=== PATIENT | male | born 1985 | race Caucasian/White ===

== ENCOUNTER 2024-11-02 20:43 | Emergency (ER) | payer OTHER, SELFPAY ==
[2024-11-02] VITALS (7 sets, daily range): BP systolic 122–137; BP diastolic 85–94; PULSE 66–106; RESP 10–24; TEMP 36.4; O2SAT 95–100; BMI 28.7
--- NOTE | 2024-11-02 20:50 | RAD_ITS ---
PROCEDURE: SHOULDER MIN 2 VIEWS REASON FOR EXAM: Injury. Pain TECHNIQUE: 4 view(s) of the left shoulder COMPARISON: None. FINDINGS: Anterior inferior dislocation of the glenohumeral joint with a suspected Hill- Sachs defect. Soft tissues are unremarkable. RAD/Shoulder min 2 Views IMPRESSION: Anterior inferior dislocation of the glenohumeral joint with a suspected Hill-S achs defect. Reading Location: [facility]
--- NOTE | 2024-11-02 21:10 | EDS_ITS ---
HPI History of Present Illness Chief Complaint: Upper Extremity Injury [facility] Medical History (Updated 11/02/24 @ 21:22 by Leola Cutler) Shoulder dislocation Home Medications ?Medication ?Instructions ?Recorded ?Last Taken ?Type vibegron 75 mg tablet (Gemtesa) 75 mg PO DAILY 5 Unknown History Allergy/AdvReac Type Severity Reaction Status Date / Time Penicillins (PCN) Allergy Mild Rash Verified 11/02/24 20:44 Social History Smoking Status: Never smoker EXAM Physical Exam Const Vital Signs: 11/02/24 20:44 Temperature 97.5 F L Temperature Source Temporal Pulse Rate 106 H Respiratory Rate 15 Blood Pressure 137/90 H Blood Pressure Mean 105 Pulse Ox 97 Oxygen Delivery Method Room Air [facility] MDM MDM Narrative Medical decision making narrative: HISTORY OF PRESENT ILLNESS: 38-year-old male presents with left shoulder pain concern for dislocation after playing hockey. Patient denies head trauma. He is right-hand dominant. REVIEW OF SYSTEMS: Pertinent positives: Left shoulder pain Pertinent negatives: Numbness tingling PHYSICAL EXAM: Nursing triage notes reviewed, Vital signs reviewed Constitutional: please see mdm Extremities: N obvious step-off deformity to left shoulder. Left lower extremity warm well-perfused Neuro: intact 5/5 strength with ok sign (median), intact finger abduction (ulnar) intact wrist extension (radial n). Intact sensation in the radial, ulnar, and median nerve distributions. Intact axillary nerve function Skin: No rash or lesions noted, no sign of open fracture MEDICAL DECISION MAKING: Chief Complaint: Shoulder pain External records reviewed: Reviewed prior imaging Factors affecting care: none Social determinants of health: none History obtained from others: none Consults: none [facility] Narrative: Patient was initially hemodynamically stable, afebrile and nontoxic-appearing. Exam with obvious step-off deformity left shoulder. I considered the following differential diagnosis: Shoulder fracture, dislocation ALL IMAGES (IF OBTAINED) HAVE BEEN PERSONALLY REVIEWED AND INTERPRETED BY MYSELF. X-ray of the patient's left shoulder was read and reviewed personally. It shows evidence of obvious left shoulder dislocation. Postreduction x-ray was read and reviewed personally and showed interval reduction no obvious fracture or dislocation. Patient appropriate discharge home. Procedural sedation was performed for with propofol. Please see below procedure note. The procedure was performed by myself. Intra-Service Time: 15 minutes Indication: Completion of a potentially painful procedure. Pre-sedation Evaluation: Evaluated at approximately 9:45 PM on 11/02/2024, ASA class I, Mallampati score of 1 Patient is an appropriate candidate for procedural sedation. The risks of sedation were discussed with the patient and/or legal guardian. A time out was completed. The patient was reevaluated immediately prior to initiation of sedation. IV access established. The patient was sedated with use 100 mg IV propofol. The patient was monitored with continuous pulse oximetry, urology nurse, and capnography. The patient protected their airway well, with vital signs remaining stable throughout the duration of the procedure. There were no complications and no significant hypoxemia. I remained at the bedside for the sedation. I provided 15 minutes minutes of intra-service time. Post sedation evaluation: Patient was alert and cooperative, hemodynamically st able with appropriate respiratory status, temperature and pain control without ongoing nausea and vomiting. The patient and/or family, caregivers express understanding. The patient and/or family, caregivers agrees with the plan. Shared decision making: I will have a discussion with the patient and or visitors regarding risk/benefits of further testing or admission. They will be made aware of of the risk/benefits inherent in this decision they will be given the opportunity to voice understanding. Total critical care time today provided was at least 0 minutes. This excludes separately billable procedures. Critical care time (if documented) is secondary to the patient having high probability of clinically significant/life threatening deterioration in the patient's condition which required my urgent intervention. Impression: 1. Acute left shoulder dislocation 2. History of rotator cuff surgery 3. Hill-Sachs deformity Dispo: Discharge home This note was generated with [employer] dictation software. It may contain incorrect words, spelling, and punctuation that were not noted in review of the chart prior to signing. Discharge Plan Triage Chief Complaint: Upper Extremity Injury ED Provider: Eyad Villagomez Dx/Rx/DC Orders Instructions: ED Dislocation: Shoulder (Reduced) Prescriptions: No Action Gemtesa 75 mg tablet 75 mg PO DAILY Stand Alone Forms: ED Work / School Excuse Primary Care Provider: Alex Guerrero Referrals: Kai Meyer DO [Med Staff - Active Staff] - Activity Restrictions/Additional Instructions: Thank you for trusting us with your care today! Please take Tylenol (2 pills, 650 mg), ibuprofen (2 pills, 400 mg) every 6 hours as needed for pain and fever control. Please return to the emergency department if your symptoms change or worsen. Please slowly return to full activity. Please wear your sling for the first 24 hours. After which time please daily remove your arm from the sling and perform light slow nonweight range of motion exercises. Please follow with orthopedic surgery if needed for further outpatient evaluation and management. Print Language: Frisian Disposition Disposition: Home, Self Care Discharge Date/Time: 11/02/24 23:33
[2024-11-02] MEDS: 0.9% Normal Saline (1000mL) 1,000 ML 1000 ML IV (21:20)
[2024-11-02] MEDS: Ondansetron 4 MG/2 ML Vial IV (21:20)
[2024-11-02] MEDS: Morphine 4 MG/ML Syringe IV (21:20)
[2024-11-02] MEDS: Ketorolac 15 MG/ML Vial IV (21:20)
[2024-11-02] MEDS: Propofol 200 MG/20 ML Vial 100 MG IV BOLUS (22:02)
--- NOTE | 2024-11-02 22:15 | RAD_ITS ---
PROCEDURE: SHOULDER MIN 2 VIEWS REASON FOR EXAM: Post reduction TECHNIQUE: 3 view(s) of the left shoulder COMPARISON: Chest radiograph obtained earlier today. FINDINGS: Interval reduction of the glenohumeral joint dislocation. Anatomical alignment is maintained. No acute fracture or dislocation. No radiopaque foreign body is demonstrated. RAD/Shoulder min 2 Views IMPRESSION: Interval reduction of a glenohumeral joint dislocation. Anatomical alignment i s maintained. Reading Location: [facility]
== END 2024-11-02 23:33 | disposition home or self-care (01) ==
PROVIDERS: Emergency Provider Emergency Medicine; PCP Family Medicine; Visit Provider Emergency Medicine
DX: S42.292A Other displaced fracture of upper end of left humerus, initial encounter for closed fracture (principal); X58.XXXA Exposure to other specified factors, initial encounter; Y93.22 Activity, ice hockey
CPT/HCPCS: 23605; 73030; 96361; 96374; 96375; 99285; A4216; J2405